=== PATIENT | female | born 1945 | race Two or more races ===

== ENCOUNTER 2018-06-28 07:56 | Emergency (ER) | payer OTHER ==
[~2018-06-28] VITALS: Ht 162.6 cm; Wt 75.7 kg
[2018-06-28] MEDS ORDERED: FORTAMET500 MG (08:06)
[2018-06-28] MEDS ORDERED: COZAAR25 MG (08:06)
[2018-06-28] MEDS ORDERED: SYNTHROID75 MCG (08:06)
[2018-06-28] MEDS ORDERED: HYDROCHLOROTH12.5 M1 (08:06)
[2018-06-28] MEDS ORDERED: ZOCOR20 MG (08:07)
[2018-06-28] MEDS ORDERED: BACTRIM DS TAB1 EACH PO (20:12)
[2018-06-28] MEDS ORDERED: OMEPRAZOLE40 MG PO (20:12)
[2018-06-28] MEDS ORDERED: METRONIDAZOLE500 MG PO (20:12)
[2018-06-28] MEDS ORDERED: PROBIOTIC ACID1 EAC2 PO (20:12)
== END 2018-06-28 21:41 | disposition home or self-care (01) ==
LOC: ER 07:56
DX: K57.32 Diverticulitis of large intestine without perforation or abscess without bleeding (principal); R10.32 Left lower quadrant pain

== ENCOUNTER 2019-12-23 07:49 | Inpatient (IN) | payer OTHER ==
[~2019-12-23] VITALS: Ht 167.6 cm; Wt 72.6 kg
[~2019-12-23 07:49] MED LIST: BACTRIM DS TAB1 EACH PO; COZAAR25 MG; FORTAMET500 MG; HYDROCHLOROTH12.5 M1; METRONIDAZOLE500 MG PO; OMEPRAZOLE40 MG PO; PROBIOTIC ACID1 EAC2 PO; SYNTHROID75 MCG; ZOCOR20 MG
[2019-12-23] MEDS ORDERED: EMERGEN-C 1,01000 MG PO (08:03)
[2019-12-23] MEDS ORDERED: CALCIUM 600 +1 EACH PO (08:03)
[2019-12-23] MEDS ORDERED: AMOXICILLIN875 MG PO (08:06)
--- NOTE | 2019-12-23 08:06 | NUR ---
SE RECIBE PACIENTE ALERTA, ORIENTADA X 3 ESFERAS REFIERE TENER DOLOR ABDOMINAL HACE 2 SEMANAS Y SE AGUDIZADO ,PTE.HX.DIVERTICULOS. PTE DRA.NICOL BARAJAS.SE UBICA EN [address] CON BARRANDAS ELEVADAS A NIVEL MAS BAJO SE ORIENTA DE NECESITAR AYUDA NOTIFICAR AL PERSONAL.PTE REFIERE ENTENDER.
--- NOTE | 2019-12-23 11:03 | NUR ---
PACIENTE ALERTA Y ORIENTADA EN EDDIE STEPHANY ESFERAS, ES ORIENTADA SOBRE ORDENES MEDICAS, REFIERE ENTENDER. SE COLECTAN MUESTRAS DE LAURA, SE CANALIZA VENA Y SE ADMINISTRAN MEDICAMENTOS. CT SCAN REALIZADO.
== END 2020-01-01 10:45 | disposition home or self-care (01) | DRG 392 ==
LOC: ER 07:49 → SURG 14:59
PROVIDERS: ADMIT Internal Medicine; ATTEND Internal Medicine
PROC: BW21ZZZ Computerized Tomography (CT Scan) of Abdomen and Pelvis (ICD-10-PCS; principal; 2019-12-23)
DX: K57.32 Diverticulitis of large intestine without perforation or abscess without bleeding (principal); N30.80 Other cystitis without hematuria; B96.5 Pseudomonas (aeruginosa) (mallei) (pseudomallei) as the cause of diseases classified elsewhere; I10 Essential (primary) hypertension; E11.9 Type 2 diabetes mellitus without complications; Z20.828 Contact with and (suspected) exposure to other viral communicable diseases

== ENCOUNTER → 2021-09-29 | Emergency (ER) | payer OTHER ==
[~2021-09-29] VITALS: Ht 160 cm; Wt 72.6 kg
[~2021-09-29] MED LIST changes: +AMOXICILLIN875 MG PO; +CALCIUM 600 +1 EACH PO; +EMERGEN-C 1,01000 MG PO; +GLUMETZA500 MG PO; +TENORMIN25 MG PO
== END | disposition left against medical advice (07) ==
LOC: ER 19:49
DX: Z53.21 Procedure and treatment not carried out due to patient leaving prior to being seen by health care provider (principal)

== ENCOUNTER 2021-10-14 06:39 | Inpatient (IN) | payer OTHER ==
[~2021-10-14] VITALS: Ht 160 cm; Wt 71.7 kg
--- NOTE | 2021-10-14 06:46 | NUR ---
PATIENT IS RECIEVED SAYING THAT THAT SHE SUSPECTS THAT SHE IS HAVING AN EPISODE OF DIVERTICULOSIS. PATIENT HAS BEEN IN PAIN FOR THREE DAYS NOW.
--- NOTE | 2021-10-14 07:45 | NUR ---
PACIENTE ALERTA Y ORIENTADA POR STEPHANY. SE ORIENTA DE TRATAMIENTO POR MIS NGUYEN Y MIS BRIANDA RN, PACIENTE LES REFIERE ENTENDER. ESTAS CANALIZAN, ABNER MUESTRAS Y ADMINISTRAN MEDICAMENTOS CON MEDIDAS ASEPTICAS CORRESPONDIENTES. PACIENTE EN ESPERA DE ESTUDIO. SE MONITOREA POR CAMBIOS SIGNIFICATIVOS.
== END 2021-10-21 11:39 | disposition home or self-care (01) | DRG 392 ==
LOC: ER 06:39 → MEDI 13:42
PROVIDERS: ADMIT Internal Medicine; ATTEND Internal Medicine
PROC: BW21ZZZ Computerized Tomography (CT Scan) of Abdomen and Pelvis (ICD-10-PCS; principal; 2021-10-14)
DX: K57.32 Diverticulitis of large intestine without perforation or abscess without bleeding (principal); E11.9 Type 2 diabetes mellitus without complications; I10 Essential (primary) hypertension; E03.9 Hypothyroidism, unspecified; Z79.84 Long term (current) use of oral hypoglycemic drugs; Z20.822 Contact with and (suspected) exposure to COVID-19

== ENCOUNTER 2022-04-22 06:33 | Day surgery (SDC) | payer OTHER | END 2022-04-22 12:55 | disposition home or self-care (01) | LOC: AMB-ENDOS 06:33 | PROVIDERS: ATTEND Colon & Rectal Surgery | DX: D12.2 Benign neoplasm of ascending colon (principal); D12.8 Benign neoplasm of rectum; K62.5 Hemorrhage of anus and rectum; Z91.041 Radiographic dye allergy status; Z20.822 Contact with and (suspected) exposure to COVID-19 ==

== ENCOUNTER 2024-08-04 06:25 | Day surgery (SDC) | payer OTHER ==
[2024-08-04] MEDS ORDERED: fentaNYL CITRATE 50 MCG/ML AMPUL IV PUSH ONE (09:45)
[2024-08-04] MEDS ORDERED: DIPHENHYDRAMINE HCL 50 MG/ML VIAL 1ML IV ONE (09:45)
[2024-08-04] MEDS ORDERED: MIDAZOLAM HCL 2 MG/2 ML VIAL IV ONE (09:45)
[2024-08-04] MEDS ORDERED: ONDANSETRON HCL 2 MG/ML VIAL IV ONE (09:45)
== END 2024-08-04 10:45 | disposition home or self-care (01) ==
LOC: AMB-ENDOS 06:25
PROVIDERS: ATTEND Colon & Rectal Surgery
DX: D12.7 Benign neoplasm of rectosigmoid junction (principal); D12.3 Benign neoplasm of transverse colon; D12.5 Benign neoplasm of sigmoid colon; K63.5 Polyp of colon; K62.1 Rectal polyp; K57.30 Diverticulosis of large intestine without perforation or abscess without bleeding; Z91.040 Latex allergy status